=== PATIENT | female | born 1940 | race Caucasian/White ===

== ENCOUNTER 2020-08-29 12:22 | Emergency (ER) | payer MEDICARE, OTHER ==
--- NOTE | 2020-08-29 12:41 | CT ---
EXAM: CT brain without contrast HISTORY: GCS 3. Level 1 stroke COMPARISON: None TECHNIQUE: Multiple contiguous axial images were obtained and a CT of the brain without contrast. FINDINGS: There is a large amount of subdural and subarachnoid blood in both frontal lesions and ana paula g the falx. There is a large amount of blood in the basilar cisterns. No intraventricular hemorrhage or hydrocephalus are seen. 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 Diffuse cerebral edema is seen. No confluent infarction is seen. Mild shift the midline to the left is seen. There is crowding of the basilar cisterns without downward herniation at this time. The calvarium and overlying soft tissues are unremarkable. The visualized paranasal sinuses and masto id air cells are well aerated. IMPRESSION: Large amount of subarachnoid and subdural blood as above. Dr. Rand notified of findings at 12:37 PM on 08/29/2020
[2020-08-29] MEDS ORDERED: niCARdipine 20MG In NaCl 20 MG/200 ML BAG ONE ×2 (12:44→13:54)
[2020-08-29] MEDS ORDERED: Tranexamic Acid 1,000 MG/10 ML VIAL ONE (13:00)
[2020-08-29] MEDS ORDERED: Esmolol 2,500 MG/250 ML 250 ML ONE (13:15)
[2020-08-29 13:29] LABS: #Eosinphils 0.1 thou/uL (0.0-0.7); #Monocytes 0.8 thou/uL (0.11-0.59); %Basophils 0.1 % (0.0-1.0); %Eosinophils 0.9 % (0.0-10.0); %Lymphocytes 8.7 % (21.0-51.0); %Neutrophils 83.3 % (42.0-75.0); Hemoglobin 12.8 g/dL (12.0-16.0); Mean Corpuscular HGB CONC 33.2 g/dL (32.0-36.0); Mean Corpuscular Hemoglobin 30.9 pg (27.0-31.0); Mean Corpuscular Volume 93.1 fL (78.0-98.0); Mean Platelet Volume 7.6 fL (7.4-10.4); Platelet Count 239 thou/uL (130-400); RBC Distribution Width 12.2 % (11.5-14.5); Red Blood Cell (RBC) Count 4.14 mill/uL (4.20-5.40)
[2020-08-29 13:30] LABS: INR-International Normal Ratio 0.9; PTT 24.6 sec (22.9-36.1); Prothrombin Time 12.4 sec (12.0-14.7)
--- NOTE | 2020-08-29 13:37 | RAD ---
EXAM: CHEST ONE VIEW HISTORY: Altered mental status. Stroke alert. COMPARISON: None FINDINGS: Endotracheal tube is noted in place with tip overlying the T3 vertebral body and above the level of t he jack. Left-sided subclavian central venous catheter is noted in place with tip overlying the expected location of the cavoatrial junction. Nasogastric tube is noted in place with the catheter co ursing into the upper abdomen, the tip is not imaged. There is interstitial and patchy airspace opacity in the right upper lung zone and to a lesser extent right lung base with greater patchy paren chymal opacity and consolidation seen in the retrocardiac region left lung base. Findings may represent multifocal pneumonia. Viral pneumonitis and/or aspiration pneumonitis is a possibility. Lef t lateral costophrenic angle is excluded from view. There is a rounded calcification overlying left upper quadrant which is difficult to further localize. IMPRESSION: 1. Interstitial and patchy parenchymal airspace opacities bilaterally greater at the left lung base. This may related to multifocal pneumonia or possibly viral pneumonitis in the correct clinical scenario. Aspiration pneumonitis would be difficult to entirely exclude. 2. Rounded calcification overlying left upper quadrant. Findings could potentially represent splenic artery aneurysm which is calcified, but this is difficult to further localize or evaluated on this exam. 3. Lines and tubes in place as described above. No pneumothorax is seen.
[2020-08-29 13:46] LABS: Acetaminophen Less than 6.0 mcg/mL (10.0-30.0); Alcohol Less than 10 mg/dL (Less than 10); CK (CPK) 159 U/L (29-168); Salicylate Less than 8.0 mg/dL (15.0-30.0)
[2020-08-29 13:47] LABS: Anion Gap 15 mmol/L (10-20); BUN (Urea Nitrogen) 13 mg/dL (9.8-20.1); Bilirubin, Total 0.6 mg/dL (0.2-1.2); Calc. Creatinine Clearance 0 mL/min (70-130); Calcium 9.6 mg/dL (7.8-10.44); Carbon Dioxide 22 mmol/L (23-31); Chloride 105 mmol/L (98-107); Estimated GFR-MDRD 66; Glucose 152 mg/dL (83-110); Potassium 3.7 mmol/L (3.5-5.1); Protein, Total 7.5 g/dL (6.0-8.3); Sodium 138 mmol/L (136-145)
[2020-08-29 13:48] LABS: ALT (SGPT) 20 U/L (8-55); AST (SGOT) 22 U/L (5-34); Albumin 4.3 g/dL (3.4-4.8); Alkaline Phosphatase 54 U/L (40-110); Globulin 3.2 g/dL (2.4-3.5)
[2020-08-29 13:56] LABS: Bilirubin Negative (Negative); Blood, Urine 1+ (Negative); Clarity Clear (Clear); Glucose, Urine (Dipstick) Normal (Negative); Ketone, Urine Negative (Negative); Leukocyte Negative Leu/uL (Negative); Nitrite Negative (Negative); Protein, Urine (Dipstick) 200 mg/dL (Neg-Trace); RBC/HPF 0-3 HPF (0-3); Specific Gravity, Urine 1.008 (1.002-1.036); Squamous Epithelial None Seen HPF (0-3); Urobilinogen Normal mg/dL (Less than 2); pH, Urine 7.5 (5.0-9.0)
[2020-08-29 13:59] LABS: Bacteria/HPF 1+ HPF (None Seen)
[2020-08-29 14:02] LABS: Amphetamine Not Detected (NotDetected); Barbiturates Screen Not Detected (NotDetected); Benzodiazepine Screen Not Detected (NotDetected); Cocaine Metabolite Screen Not Detected (NotDetected); Medtox Control Line Valid? VALID (VALID); Medtox Reader # READER 4; Methadone Not Detected (NotDetected); Methamphetamine Not Detected (NotDetected); Opiate Screen Not Detected (NotDetected); Oxycodone Screen Not Detected (NotDetected); Phencyclidine (PCP) Not Detected (NotDetected); THC/Cannabinoid Screen Not Detected (NotDetected); Tricyclic Screen Not Detected (NotDetected)
[2020-08-29 14:20] LABS: CKMB 4.8 ng/mL (0-6.6)
--- NOTE | 2020-09-07 15:37 | EKG ---
Test Reason : Blood Pressure : / mmHG Vent. Rate : 080 BPM Atrial Rate : 080 BPM P-R Int : 182 ms QRS Dur : 100 ms QT Int : 436 ms P-R-T Axes : -08 037 059 degrees QTc Int : 502 ms Normal sinus rhythm Prolonged QT Abnormal ECG Confirmed by ANIL BARDALES DO ([id number]), index editor TORSTEN FINK ([id number]) on 09/07/2020 3:36:42 PM Referred By: Confirmed By:ANIL BARDALES DO
== END 2020-08-29 14:03 | disposition short-term general hospital (02) ==
LOC: ERS 12:22
DX: I60.9 Nontraumatic subarachnoid hemorrhage, unspecified (principal)
CPT/HCPCS: 36556; 51702; 70450; 71045; 80053; 80306; 80307; 81003; 81015; 82550; 82553; 83605; 84443; 84484; 85025; 85610; 85730; 93005; 94002; 94760; 96365; 96368; 96375